=== PATIENT | female | born 1985 | race Caucasian/White ===

== ENCOUNTER 2020-02-10 15:26 | Emergency (ER) | payer OTHER ==
[~2020-02-10] VITALS: Ht 165.1 cm; Wt 69.7 kg
[2020-02-10] MEDS ORDERED: CITALOPRAM HBR10 MG PO (15:50)
[2020-02-10] MEDS ORDERED: AUGMENTIN 875-1 EACH PO (19:40)
== END 2020-02-10 19:50 | disposition home or self-care (01) ==
LOC: ED 15:26
DX: K11.20 Sialoadenitis, unspecified (principal); F17.200 Nicotine dependence, unspecified, uncomplicated; Z79.899 Other long term (current) drug therapy
CPT/HCPCS: 80053; 85025; 99283